=== PATIENT | female | born 1990 | race Hispanic/Latino ===

== ENCOUNTER 2017-12-01 17:01 | Emergency (ER) | payer OTHER, MEDICAID | END 2017-12-01 17:43 | disposition home or self-care (01) | LOC: EDH 17:01 | DX: L23.9 Allergic contact dermatitis, unspecified cause (principal) | CPT/HCPCS: 99281 ==

== ENCOUNTER 2018-05-15 17:14 | Inpatient (IN) | payer MEDICAID ==
[~2018-05-15 17:14] MED LIST: METH500T22 PO; PNV1TABL17 PO
[2018-05-15] MEDS ORDERED: LACTATED RINGERS 1000ML 1,000 ML IV PRN (18:23)
[2018-05-15] MEDS ORDERED: DINOPROSTONE 10 MG VAGINAL SUPP VG SCH (18:30)
[2018-05-15] MEDS ORDERED: OXYTOCIN-LR 20 UNITS/1000 ML 1,000 ML IV SCH (18:30)
[2018-05-15 18:45] LABS: HEMATOCRIT 37.2 % (36-48); MEAN CORPUSCULAR HEMOGLOBIN 29.2 pg (27.0-33.0); MEAN CORPUSCULAR HGB CONC 34.2 g/dL (32.0-36.0); MEAN CORPUSCULAR VOLUME 85.5 fL (79-99); PLATELET COUNT (AUTO) 275 K/uL (130-400); RED BLOOD CELL COUNT(AUTO) 4.35 MIL/uL (4.00-5.50); RED CELL DISTRIBUTION WIDTH 14.5 % (11.0-15.5); WHITE BLOOD COUNT (AUTO) 9.2 K/uL (4.8-10.8)
[2018-05-15 18:46] LABS: APPEARANCE,URINE Clear (CLEAR); BILIRUBIN,URINE Negative (NEGATIVE); COLOR,URINE Yellow (YELLOW); GLUCOSE, URINE (UA) Negative (NEGATIVE); KETONES,URINE Trace mg/dL (NEGATIVE); LEUKOCYTE ESTERASE ,URINE Trace (NEGATIVE); NITRATE,URINE Negative (NEGATIVE); OCCULT BLOOD,URINE Negative (NEGATIVE); PH,URINE 6.5 (5.0-8.0); PROTEIN,URINE 300 (NEGATIVE)
[2018-05-15 18:59] LABS: RBC,URINE 0-1 /HPF (0-1)
[2018-05-15 19:00] LABS: BACTERIA,URINE Few /HPF (None Seen); MUCUS,URINE Few LPF (None Seen); SQUAMOUS EPITHELIAL CELL,UR Few /HPF (0-2)
[2018-05-16] MEDS ORDERED: LACTATED RINGERS 1000ML 1,000 ML IV ONE (09:17)
[2018-05-16] MEDS ORDERED: OXYTOCIN 10 USP UNITS/ML ONE (09:18)
[2018-05-16] MEDS: OXYTOCIN-LR 20 UNITS/1000 ML 1,000 ML IV SCH (09:25)
[2018-05-16] MEDS ORDERED: MORPHINE SULFATE 10 MG/ML 1ML VIAL IM PRN ×2 (17:45→22:45)
[2018-05-17] MEDS ORDERED: OXYTOCIN 10 USP UNITS/ML ONE ×2 (02:11→19:03)
[2018-05-17] MEDS ORDERED: LACTATED RINGERS 1000ML 1,000 ML IV ONE (02:11)
[2018-05-17] MEDS: OXYTOCIN-LR 20 UNITS/1000 ML 1,000 ML IV SCH (03:09)
[2018-05-17 08:24] LABS: HEPATITIS Bs ANTIGEN SCREEN P Negative (Negative)
[2018-05-17] MEDS ORDERED: CEFAZOLIN SODIUM 1 GM VIAL IVP PRN (09:30)
[2018-05-17] MEDS ORDERED: CALDOLOR 800MG+NS 250ML 250 ML IV PRN (09:30)
[2018-05-17] MEDS ORDERED: DURAMORPH PF1 MG/ML 10ML AMP IV ONE (09:32)
[2018-05-17] MEDS ORDERED: CEFAZOLIN SODIUM 1 GM VIAL IVP ONE (10:09)
[2018-05-17] MEDS ORDERED: EPINEPHRINE 1 MG/ML AMPULE ONE (10:32)
[2018-05-17] MEDS ORDERED: OXYTOCIN 10 UNIT/1ML 10ML VIAL ONE (10:32)
[2018-05-17] MEDS ORDERED: ONDANSETRON HCL 4 MG/2 ML VIAL ONE (10:33)
[2018-05-17] MEDS ORDERED: GLYCOPYRROLATE 1 MG/5 ML SYRINGE ONE (10:51)
[2018-05-17] MEDS ORDERED: OXYTOCIN-LR 20 UNITS/1000 ML 1,000 ML IV PRN (11:11)
[2018-05-17] MEDS ORDERED: DIPH,PERTUSS(ACELL),TET VAC/PF 0.5 ML VIAL IM SCH (11:15)
[2018-05-17] MEDS ORDERED: DIPHENHYDRAMINE HCL 25 MG CAPSULE PO PRN (11:15)
[2018-05-17] MEDS ORDERED: DEXTROSE 5 %-0.45 % NACL 1,000 ML IV PRN (11:15)
[2018-05-17] MEDS: CEFAZOLIN 3GM /D5W 100ML 100 ML IV SCH ×2 (11:15→20:54)
[2018-05-17] MEDS ORDERED: ACETAMINOPHEN-CODEINE 300/30MG TAB PO PRN (11:15)
[2018-05-17] MEDS ORDERED: BISACODYL 10 MG SUPP.RECT RC PRN (11:15)
[2018-05-17] MEDS ORDERED: LANOLIN 30GM OINTMENT TP PRN (11:15)
[2018-05-17] MEDS ORDERED: SODIUM CHLORIDE 0.9% 10 ML VIAL IVP PRN (11:15)
[2018-05-17] MEDS ORDERED: PROMETHAZINE HCL 25 MG/ML 1ML AMPULE IM ONE (11:24)
[2018-05-17 13:30] VITALS: BP 143/76
[2018-05-17] MEDS ORDERED: METOCLOPRAMIDE 10 MG/2 ML VIAL IVP PRN (13:30)
[2018-05-17] MEDS ORDERED: HYDROCODONE/ACETAMINOPHEN 5/325 MG TAB PO PRN ×2 (13:30)
[2018-05-17] MEDS ORDERED: EPHEDRINE SULFATE 50 MG/ML AMPULE IVP PRN (13:30)
[2018-05-17] MEDS ORDERED: DiphenhydrAMINE HCL 50 MG/ML VIAL IVP PRN (13:30)
[2018-05-17] MEDS ORDERED: MORPHINE SULFATE 2 MG/ML 1ML SYG IVP PRN (13:30)
[2018-05-17] MEDS ORDERED: ONDANSETRON HCL 4 MG/2 ML 8 MG in SODIUM CHLORIDE 0.9% 50 ML IVP NR (13:30)
[2018-05-17] MEDS ORDERED: NALOXONE HCL 0.4 MG/1 ML ML IVP PRN (13:30)
[2018-05-17] MEDS ORDERED: ONDANSETRON HCL 4 MG/2 ML VIAL IVP PRN ×2 (13:30)
[2018-05-17] MEDS ORDERED: PROMETHAZINE HCL 25 MG/ML 1ML AMPULE IM PRN (13:30)
[2018-05-17 15:38] VITALS: BP 160/93
[2018-05-17] MEDS: CALDOLOR 800MG+NS 250ML 250 ML IV SCH (19:09)
[2018-05-17 20:22] VITALS: BP 138/76
[2018-05-17] MEDS: DOCUSATE SODIUM 100 MG CAP PO SCH (20:52)
[2018-05-18 01:21] VITALS: BP 131/80
[2018-05-18] MEDS ORDERED: CEFAZOLIN 3GM /D5W 100ML 100 ML IV SCH (03:00)
[2018-05-18] MEDS: CALDOLOR 800MG+NS 250ML 250 ML IV SCH (03:26)
[2018-05-18 05:01] VITALS: BP 122/57
[2018-05-18] MEDS: CEFAZOLIN 3GM /D5W 100ML 100 ML IV SCH (05:22)
[2018-05-18 06:43] LABS: HEMATOCRIT 31.9 % (36-48); MEAN CORPUSCULAR HEMOGLOBIN 28.9 pg (27.0-33.0); MEAN CORPUSCULAR HGB CONC 34.1 g/dL (32.0-36.0); MEAN CORPUSCULAR VOLUME 84.8 fL (79-99); PLATELET COUNT (AUTO) 193 K/uL (130-400); RED BLOOD CELL COUNT(AUTO) 3.77 MIL/uL (4.00-5.50); RED CELL DISTRIBUTION WIDTH 14.8 % (11.0-15.5)
[2018-05-18 07:27] VITALS: BP 132/72
[2018-05-18] MEDS: DOCUSATE SODIUM 100 MG CAP PO SCH ×2 (08:37→21:38)
[2018-05-18] MEDS: SIMETHICONE 80 MG TAB.CHEW PO PRN ×2 (08:37→21:38)
[2018-05-18 12:02] VITALS: BP 136/81
[2018-05-18 15:26] VITALS: BP 148/79
[2018-05-18] MEDS: IBUPROFEN 800 MG TAB PO SCH ×2 (16:00→23:39)
[2018-05-19 00:53] VITALS: BP 143/82
[2018-05-19 04:47] VITALS: BP 140/84
[2018-05-19 07:29] VITALS: BP 161/97
[2018-05-19] MEDS: IBUPROFEN 800 MG TAB PO SCH ×2 (09:02→11:41)
[2018-05-19] MEDS: DOCUSATE SODIUM 100 MG CAP PO SCH (09:02)
[2018-05-19] MEDS: SIMETHICONE 80 MG TAB.CHEW PO PRN ×2 (09:02→11:39)
[2018-05-19 11:29] VITALS: BP 152/96
== END 2018-05-19 12:50 | disposition home or self-care (01) | DRG 540 ==
LOC: LDH 17:14 → WSH 05-17 13:32
PROC: 3E0234Z Introduction of Serum, Toxoid and Vaccine into Muscle, Percutaneous Approach (ICD-10-PCS; 2018-05-17)
PROC: 10D00Z1 Extraction of Products of Conception, Low, Open Approach (ICD-10-PCS; principal; 2018-05-17 09:55)
DX: O61.9 Failed induction of labor, unspecified (principal); O10.92 Unspecified pre-existing hypertension complicating childbirth; Z23 Encounter for immunization; Z3A.00 Weeks of gestation of pregnancy not specified; Z37.0 Single live birth
CPT/HCPCS: 36415; 59510; 81001; 85027; 86592; 86850; 86900; 86901; 87340; 90715; A4344; A4606; J0171; J0690; J1741; J2270; J2274; J2405; J2550; J2590; J3490; J7120; Q2038